=== PATIENT | male | born 1985 | race Caucasian/White ===

== ENCOUNTER 2022-07-29 02:20 | Emergency (ER) | payer SELFPAY ==
[2022-07-29 02:20] VITALS: BP 128/80; PULSE 86; RESP 14; TEMP 36.1; O2SAT 96; BMI 25.8
--- NOTE | 2022-07-29 03:07 | ED_ITS ---
HPI - Alcohol General: Chief Complaint: Alcohol Stated Complaint: Intoxication Time Seen by Provider: 07/29/22 02:34 History of Present Illness: 37-year-old male who was found drunk in the [employer] parking lot by police. He was given the option of coming [facility] or coming to the ER. He obviously chose the ER he presents awake, alert to person time location and date. He is not suicidal or homicidal. When asked, he wished for a warm blanket, something to eat, and a place to sleep for a bit. He is courteous. Later on my formal examination, the patient is sleeping. He is difficult to arouse. MD complaint: alcohol intoxication Chronic alcohol use: Yes Previous visits for alcohol intoxication: No Recent trauma: No Associated symptoms: Deny abdominal pain, seizure-like activity, suicidal ideation or vomiting Treatments prior to arrival: none Review of Systems Card: Denies: chest pain Resp: Denies: dyspnea GI: Denies: abdominal pain or vomiting Neuro: Denies: seizure-like activity Psych: Denies: suicidal ideation Physical Exam Const: GENERAL APPEARANCE: lethargic; not well kempt ORIENTATION/CONSCIOUSNESS: Yes oriented to person, Yes oriented to place, Yes oriented to time and Yes lethargic HENMT: COMMON NORMALS: normocephalic and atraumatic HEAD & SCALP: normocephalic and atraumatic Neck/C-Spine: GENERAL: Yes trachea midline Chest: CHEST: Yes Symmetrical chest wall rise Resp: COMMON NORMALS: normal respiratory effort and No use of accessory muscles Cardio: COMMON NORMALS: regular rate and regular rhythm RATE: regular rate RHYTHM: regular rhythm GI: INSPECTION: Yes normal to inspection Extremity: COMMON NORMALS: no pedal edema Neuro: SENSORIUM/ORIENTATION: Yes oriented to person, Yes oriented to place, Yes oriented to time and Yes lethargic Psych: COMMON NORMALS: cooperative APPEARANCE: No well kempt and Yes unkempt Course Vital Signs: Vital signs: Vital Signs Temperature 97.0 F L 07/29/22 02:20 Pulse Rate 87 07/29/22 06:08 Respiratory Rate 18 07/29/22 06:08 Blood Pressure 123/76 07/29/22 06:08 Pulse Oximetry 99 07/29/22 06:08 Oxygen Delivery Me thod Room Air 07/29/22 02:20 MDM - Alcohol Medical Decision Making 37-year-old intoxicated male with no injury. He is not suicidal or homicidal. His vital signs are stable. He will be allowed discharge when awake. Discharge Plan Discharge Patient Disposition: Home Clinical Impression: Alcoholic intoxication Condition: Stable Discharge Orders: Discharge ED (Routine); Ordered 07/29/22 Ordered By: Ryan Oviedo Patient Instructions: Alcohol Intoxication (ED) Coding Level of Care Code ED [facility]
[2022-07-29 04:47] VITALS: BP 112/83; PULSE 77; RESP 16; O2SAT 94
--- NOTE | 2022-07-29 04:48 | PC.NURSE ---
pt resting comfortably in room eyes closed. resp even and non labored.
[2022-07-29 06:08] VITALS: BP 123/76; PULSE 87; RESP 18; O2SAT 99
--- NOTE | 2022-08-09 13:41 | DCPLANNER ---
TCM called patient due to no primary care physician - no answer at this time.
== END 2022-07-29 06:09 | disposition home or self-care (01) ==
PROVIDERS: Emergency Provider Emergency Medicine
DX: F10.120 Alcohol abuse with intoxication, uncomplicated (principal)
CPT/HCPCS: 99283